=== PATIENT | male | born 1960 | race Caucasian/White ===

== ENCOUNTER 2021-08-30 06:48 | Day surgery (SDC) | payer MEDICAID ==
[~2021-08-30] VITALS: Ht 198.1 cm; Wt 116.6 kg
[~2021-08-30 06:48] MED LIST: AMIO200T33 PO; CAR3125T PO; FURO40TA4 PO; LISI2.5T47 PO; RIVA20TA PO; SIMV10TA84 PO
[2021-08-30] MEDS ORDERED: HEPARIN SODIUM (PORCINE) 5000 UNITS/ML 1ML VIAL ONE (07:45)
[2021-08-30] MEDS ORDERED: VERAPAMIL 2.5MG/ML INJ 2ML VIAL IV ONE (07:45)
[2021-08-30] MEDS ORDERED: fentaNYL CITRATE 100 MCG/2 ML VL ONE (07:45)
[2021-08-30] MEDS ORDERED: ANGIOMAX 250 MG VIAL IV ONE (07:45)
[2021-08-30] MEDS ORDERED: MIDAZOLAM HCL 2MG/2ML 2ml VIAL (1mg/ml) ONE (07:46)
[2021-08-30] MEDS ORDERED: IOHEXOL 350 MG/ML 100ML IJ ONE (07:46)
[2021-08-30] MEDS ORDERED: SODIUM CHL 0.9% 0 ML ONE (07:46)
[2021-08-30] MEDS ORDERED: LIDOCAINE 2%HCL (LOCAL ANESTH.) INJ 20ML MDV ONE (07:46)
== END 2021-08-30 10:42 | disposition home or self-care (01) ==
LOC: CATH 06:48
PROVIDERS: ATTEND Internal Medicine Cardiovascular Disease
DX: R94.39 Abnormal result of other cardiovascular function study (principal); I25.10 Atherosclerotic heart disease of native coronary artery without angina pectoris; I42.8 Other cardiomyopathies; I48.92 Unspecified atrial flutter; I50.20 Unspecified systolic (congestive) heart failure; F17.210 Nicotine dependence, cigarettes, uncomplicated; F15.10 Other stimulant abuse, uncomplicated; I34.0 Nonrheumatic mitral (valve) insufficiency; I48.91 Unspecified atrial fibrillation; Z86.79 Personal history of other diseases of the circulatory system; Z20.822 Contact with and (suspected) exposure to COVID-19; Z79.02 Long term (current) use of antithrombotics/antiplatelets; Z79.82 Long term (current) use of aspirin
CPT/HCPCS: 93458; C1769; C1887; C1894; J1644; J2250; J3010; J7030; Q9967; U0003; 99152